=== PATIENT | female | born 1990 | race Caucasian/White ===

== ENCOUNTER 2018-06-19 09:41 | Day surgery (SDC) | payer OTHER ==
[~2018-06-19] VITALS: Ht 160 cm; Wt 72.9 kg
[2018-06-19 10:10] VITALS: BP 125/89; PULSE 78; TEMP 98.1
[2018-06-19] MEDS ORDERED: ADVIL200 MG PO (10:16)
[2018-06-19] MEDS ORDERED: LEVSIN0.125 M1 PO (11:52)
[2018-06-19] MEDS ORDERED: PRILOSEC 20MG20 MG PO (11:52)
[2018-06-19 12:00] VITALS: BP 113/78; PULSE 71; TEMP 98
[2018-06-19 12:15] VITALS: BP 102/62; PULSE 72
[2018-06-19 12:30] VITALS: BP 108/83; PULSE 60
== END 2018-06-19 12:50 | disposition home or self-care (01) ==
LOC: SDCO 09:41
DX: K21.0 Gastro-esophageal reflux disease with esophagitis (principal); K64.0 First degree hemorrhoids; K44.9 Diaphragmatic hernia without obstruction or gangrene; K29.30 Chronic superficial gastritis without bleeding; K59.00 Constipation, unspecified; G89.29 Other chronic pain; M54.9 Dorsalgia, unspecified; R51 Headache; Z80.0 Family history of malignant neoplasm of digestive organs
CPT/HCPCS: OP; J2250; J2405; J3010; J7030